=== PATIENT | female | born 1970 | race Caucasian/White ===

== ENCOUNTER → 2016-06-04 | Outpatient (CLI) | payer OTHER ==
[~2016-06-04] MED LIST: AMIT25TA9 PO; CALC1TAB62 PO; CETI10TA84 PO; MULT-506 PO
== END | disposition home or self-care (01) ==
LOC: C.PAPS 08:15
PROVIDERS: ATTEND Obstetrics & Gynecology
DX: Z12.4 Encounter for screening for malignant neoplasm of cervix (principal); Z87.42 Personal history of other diseases of the female genital tract

== ENCOUNTER → 2016-11-25 | Outpatient (CLI) | payer OTHER | END | disposition home or self-care (01) | LOC: C.PATHSPEC 13:37 | PROVIDERS: ATTEND Obstetrics & Gynecology | DX: N92.0 Excessive and frequent menstruation with regular cycle (principal) ==

== ENCOUNTER → 2016-12-12 | Day surgery (SDC) | payer OTHER ==
[2016-12-03 13:46] VITALS: Ht 157.5 cm; Wt 84.1 kg
[~2016-12-12] VITALS: Ht 157.5 cm; Wt 84.1 kg
[~2016-12-12] MED LIST changes: +ATROPINE SULFATE 0.1 MG/ML 5ML SYR IV PRN; +DEXAMETHASONE SOD INJ 4 MG/ML VIAL ONE; +FENTANYL CITRATE INJ 50 MCG/1 ML 2 ML VIAL IV PRN; +FENTANYL CITRATE INJ 50 MCG/1 ML 2 ML VIAL ONE; +IBUPROFEN 600 MG TAB PO PRN; +KETOROLAC TROMETHAMINE 30 MG/ML VIAL IV. PRN; +KETOROLAC TROMETHAMINE 30 MG/ML VIAL ONE; +LIDOCAINE HCL 2% 2 ML VIAL (20MG/ML) ONE; +MIDAZOLAM HCL 1 MG/ML 2ML VIAL ONE; +MoRPHine SULFATE 2 MG/ML CARP IV PRN; +MoRPHine SULFATE 4 MG/ML 1 ML CARP\\VIAL IV PRN; +ONDANSETRON INJ 2 MG/ML 2 ML VIAL IV PRN; +ONDANSETRON INJ 2 MG/ML 2 ML VIAL ONE; +OXYCODONE/ACETAMINOPHEN 5-325 TAB PO PRN; +PROMETHAZINE HCL INJ 12.5 MG in SODIUM CHLORIDE 0.9% 50ML 50 ML IV PRN; +PROPOFOL IV EMULSION 10 MG/ML 20 ML VIAL IV ONE; +SODIUM CHLORIDE 0.9% 1000ML 1,000 ML IV SCH
[2016-12-12] MEDS: LACTATED RINGER'S 1000ML 1,000 ML IV SCH ×2 (09:47→11:04)
--- NOTE | 2016-12-12 09:50 | History & Physical Bridge - [place] ---
H&P Re-Evaluation Bridge Note: I have examined the patient, reviewed the History & Physical and in the interval since the performance of the History & Physical I have noted the following changes of clinical significance: No changes noted
--- NOTE | 2016-12-12 10:35 | Discharge Instructions ---
Discharge Instructions Date of Service Dec 12, 2016. Visit Reason for Visit: Menorrhagia With Regular Cycle Discharge Discharge Diagnosis / Problem: s/p D&C, removal of polyps, endometrial ablation Discharge Goals Goal(s): Specific goals Activity Recommendations Activity Limitations: per Instructions/Follow-up section Anesthesia . Post Anesthesia Instructions: If you have had General Anesthesia or IV Sedation: * Do not drive today. * Resume driving when surgeon permits. * Do not make important decisions or sign legal documents today. * Call surgeon for: 1. Temperature elevations greater than 101 degrees F. 2. Uncontrollable pain. 3. Excessive bleeding. 4. Persistent nausea and vomiting. 5. Medication intolerance (nausea, vomiting or rash). * For nausea and vomiting use only clear liquids such as: tea, soda, bouillon until nausea subsides, then gradually increase diet as tolerated. * If you have any concerns or questions, call your surgeon's office. If physician is unavailable and it is an emergency, call 911 or go to the nearest emergency room. . Instructions / Follow-Up Instructions / Follow-Up ACTIVITY RECOMMENDATIONS: * Avoid tampons, douching, hot tubs, pools, and intercourse until bleeding has stopped. * May shower as usual. * No strenuous activity for 24-48 hours. After 24-48 hours, you may do anything you feel like doing (driving and sports are okay). SPECIAL CARE INSTRUCTIONS: Special Diet: * Mild nausea may occur in the immediate post-operative period. * Take clear liquids such as tea, cola or bouillon until all nausea has subsided; you may then resume your normal diet. Special Care: * Light bleeding and vaginal spotting can last from a few days to 3-4 weeks. Call your doctor if bleeding becomes heavier than the heaviest part of your period. * Check your temperature twice a day for one week. If it goes above 100.4 degrees Fahrenheit (38.0 Celsius), notify your doctor. * Call your doctor's office for an appointment for 6 weeks after your surgery. FOLLOW-UP VISIT: Call your doctor's office for an appointment for 6 weeks after your surgery. Diet Recommendations Recommended Home Diet: no limitations, resume previous diet Procedures Procedures Performed: Dilatation And Curettage, Hysteroscopy, Polypectomy Using Myosure, Endometrial Ablation Using Novasure Pending Studies Studies pending at discharge: no Medical Emergencies . Who to Call and When: Medical Emergencies: If at any time you feel your situation is an emergency, please call 911 immediately. . Non-Emergent Contact Non-Emergency issues call your: Human Resources Partner . . "Provider Documentation" section prepared by Kelsea Caballero. .
--- NOTE | 2016-12-12 10:37 | [facility] Post Operative Brief Note ---
Immediate Operative Summary Operative Date Dec 12, 2016. Pre-Operative Diagnosis Menorrhagia Post-Operative Diagnosis Same as preop, endometrial masses Procedure(s) Performed Dilatation And Curettage, Hysteroscopy, Polypectomy Using Myosure, Endometrial Ablation Using Novasure Surgeon Dr. Caballero Machine I Coremaker Surgeon(s) None Estimated Blood Loss 5 mL Findings uterus sounded to 9cm, cx 5, cavity 4, width 3.2, power 70watts, time 2 min. On initial hysteroscopy, there were several polypoid masses noted that were removed by Myosure until cavity was clear. Postprocedure HSC shows fairly well- ablated endometrium, there may be some sparing at the fundus and left cornu. Fluids (cc crystalloids) 700cc ivf, deficit 370cc Specimens A: Endometrial curettings and polyp Drains none Anesthesia lma Complication(s) None Disposition Recovery Room / PACU
[2016-12-12 11:16] VITALS: TEMP 36.6
--- NOTE | 2016-12-12 11:39 | Anesthesia Progress Nt - [facility] ---
Anesthesia Post Op Note Date & Time Dec 12, 2016 at 11:39 Vital Signs Pain Intensity: 0 Vital Signs Past 12 Hours Date Time Temp Pulse Resp B/P (MAP) Pulse Ox O2 Delivery O2 Flow Rate FiO2 12/12/16 11:16 36.6 54 16 113/74 (87) 100 Room Air 12/12/16 11:11 115/75 12/12/16 11:10 56 10 12/12/16 11:10 55 10 100 12/12/16 11:06 99/72 12/12/16 11:05 36.8 67 16 106/77 97 Room Air 12/12/16 11:05 73 16 12/12/16 11:05 74 16 99 12/12/16 11:04 67 16 99 12/12/16 11:04 69 16 12/12/16 11:01 106/77 12/12/16 10:59 79 14 12/12/16 10:59 80 14 100 12/12/16 10:56 113/68 12/12/16 10:54 74 10 12/12/16 10:54 70 10 100 12/12/16 10:53 81 9 100 12/12/16 10:53 81 9 12/12/16 10:51 125/70 12/12/16 10:48 88 12 100 12/12/16 10:48 91 12 12/12/16 10:45 122/72 12/12/16 10:43 36.4 89 14 115/72 97 Diffusion Mask 6 12/12/16 10:43 90 12/12/16 10:43 90 115/72 98 12/12/16 09:23 37.0 71 16 116/74 (88) 99 Room Air Notes Mental Status: alert / awake / arousable, participated in evaluation Pt Amnestic to Procedure: Yes Nausea / Vomiting: adequately controlled Pain: adequately controlled Airway Patency, RR, SpO2: stable & adequate BP & HR: stable & adequate Hydration State: stable & adequate Anesthetic Complications: no major complications apparent
[2016-12-12 11:40] VITALS: BP 125/79; PULSE 63; O2SAT 100
--- NOTE | 2016-12-12 13:40 | OPERATIVE REPORT ---
DATE OF OPERATION: 12/12/2016 PREOPERATIVE DIAGNOSIS: Menorrhagia with regular cycles. POSTOPERATIVE DIAGNOSES: 1. Same. 2. Endometrial mass. PROCEDURES: D&C, hysteroscopy, polypectomy using MyoSure and endometrial ablation using NovaSure. SURGEON: Kelsea Caballero MD ANESTHESIA: General per laryngeal mask. ESTIMATED BLOOD LOSS: 5 mL. INDICATIONS: The patient is a 46-year-old white female, who desires endometrial ablation. She has migraine headaches and contraindications to estrogen. Declines other methods for control. She has an endometrial biopsy that was normal. FINDINGS: Uterus sounded to 9 cm, cervix 5 cm, cavity 4 cm, and with 3.2 cm. Power 70 bell, time 2 minutes. On initial hysteroscopy, there were several polypoid masses noted that were removed by MyoSure until the cavity was clear. Post-procedure hysteroscopy showed fairly well ablated endometrium. There may be some sparing of the fundus in the left cornu. FLUIDS: 700 mL of IV fluid and 370 mL deficit. COMPLICATIONS: None. DRAINS: None. DISPOSITION: To recovery room in stable condition. DESCRIPTION OF PROCEDURE: The patient was taken to the operating room, where she was identified verbally and by bracelet. She was placed in dorsal supine position, where general anesthesia was induced without difficulty. She was placed in dorsal lithotomy position in candy-cane stirrups and prepped and draped in normal sterile fashion. Timeout was held identifying correct patient, procedure and positioning. The bladder was drained of urine and exam under anesthesia revealed a mobile, normal-sized uterus. No appreciable adnexal masses. A weighted speculum was placed in the posterior vagina. The anterior lip of the cervix was grasped with a single tooth tenaculum. Uterus sounded to 25 Kayley dilator. Hysteroscope was introduced with the above noted findings. There was significant tissue and polypoid masses, called for the MyoSure scope. This was placed into the uterus and then using MyoSure, the masses and curettage was performed. Once the cavity was clear, the MyoSure was removed and the NovaSure endometrial ablation device was placed into the uterus. Cavity length was 4 cm and width was 3.2 cm. The cavity integrity test was performed and found to be adequate. The procedure was initiated with the power of 70 bell, lasting for 2 minutes. The NovaSure endometrial ablation device was removed. The hysteroscope was reintroduced. Global ablation was noted throughout. There was question of sparing at the left fundus and cornual areas. The procedure was thus terminated. All instruments were removed and hemostasis was noted to be excellent. All sponge, lap and needle counts were correct x2. The patient tolerated the procedure well and was taken to recovery room in stable condition. I attest to the content of the Intraoperative Record and any orders documented therein. Any exception s are noted below.
== END | disposition home or self-care (01) ==
LOC: X.SURG 08:48
PROVIDERS: ATTEND Obstetrics & Gynecology
DX: N92.0 Excessive and frequent menstruation with regular cycle (principal); N84.0 Polyp of corpus uteri; J30.9 Allergic rhinitis, unspecified; Z81.8 Family history of other mental and behavioral disorders

== ENCOUNTER → 2017-01-17 | Outpatient (CLI) | payer OTHER ==
[~2017-01-17] MED LIST changes: -ATROPINE SULFATE 0.1 MG/ML 5ML SYR IV PRN; -DEXAMETHASONE SOD INJ 4 MG/ML VIAL ONE; -FENTANYL CITRATE INJ 50 MCG/1 ML 2 ML VIAL IV PRN; -FENTANYL CITRATE INJ 50 MCG/1 ML 2 ML VIAL ONE; -IBUPROFEN 600 MG TAB PO PRN; -KETOROLAC TROMETHAMINE 30 MG/ML VIAL IV. PRN; -KETOROLAC TROMETHAMINE 30 MG/ML VIAL ONE; -LIDOCAINE HCL 2% 2 ML VIAL (20MG/ML) ONE; -MIDAZOLAM HCL 1 MG/ML 2ML VIAL ONE; -MoRPHine SULFATE 2 MG/ML CARP IV PRN; -MoRPHine SULFATE 4 MG/ML 1 ML CARP\\VIAL IV PRN; -ONDANSETRON INJ 2 MG/ML 2 ML VIAL IV PRN; -ONDANSETRON INJ 2 MG/ML 2 ML VIAL ONE; -OXYCODONE/ACETAMINOPHEN 5-325 TAB PO PRN; -PROMETHAZINE HCL INJ 12.5 MG in SODIUM CHLORIDE 0.9% 50ML 50 ML IV PRN; -PROPOFOL IV EMULSION 10 MG/ML 20 ML VIAL IV ONE; -SODIUM CHLORIDE 0.9% 1000ML 1,000 ML IV SCH
--- NOTE | 2017-01-20 15:02 | MAMMOGRAPHY REPORT ---
BILATERAL DIGITAL SCREENING MAMMOGRAM TOMOSYNTHESIS WITH CAD: 01/17/2017 CLINICAL HISTORY: Routine screening. Patient has no complaints. TECHNIQUE: Breast tomosynthesis in addition to standard 2D mammography was performed. Current study was also evaluated with a Computer Aided Detection (CAD) system. COMPARISON: Comparison is made to exams dated: 01/12/2016 mammogram, 01/06/2015 mammogram, 01/13/2014 mammogram, 01/13/2014 ultrasound, 12/30/2013 mammogram, and 07/30/2013 stereotactic biopsy - [facility]. BREAST COMPOSITION: There are scattered areas of fibroglandular density in both breasts. FINDINGS: No suspicious masses, calcifications, or areas of architectural distortion are noted in ei ther breast. There has been no significant interval change compared to prior exams. A biopsy marker clip is again noted within the left breast. A few scattered bilateral benign-appearing calcification s are not significantly changed. IMPRESSION: ACR BI-RADS CATEGORY 2: BENIGN There is no mammographic evidence of malignancy. A 1 year screening mammogram is recommended. The pa tient will receive written notification of the results. Approximately 10% of breast cancers are not detected with mammography. A negative mammographic report should not delay biopsy if a clinically suggestive mass is present. Paula Barrera M.D. ah/:01/17/2017 15:34:06 [employer] Business Developer: Dory LOFTON(Sandra)(M), [facility] letter sent: Normal 1/2 BI-RADS Code: ACR BI-RADS Category 2: Benign
== END ==
LOC: C.MAMM 14:52
PROVIDERS: ATTEND Obstetrics & Gynecology
DX: Z12.31 Encounter for screening mammogram for malignant neoplasm of breast (principal)

== ENCOUNTER → 2017-07-22 | Outpatient (CLI) | payer OTHER | END | disposition home or self-care (01) | LOC: C.PAPS 09:17 | PROVIDERS: ATTEND Obstetrics & Gynecology | DX: Z12.4 Encounter for screening for malignant neoplasm of cervix (principal) ==